=== PATIENT | male | born 1950 | race Two or more races ===

== ENCOUNTER 2022-05-19 13:07 | Outpatient (REF) | payer MEDICARE, MEDICAID, SELFPAY ==
[2022-05-19 14:50] LABS: Vitamin B12 841 pg/mL (200-900)
== END 2022-05-19 13:08 | disposition home or self-care (01) ==
LOC: HO.LAB 13:07
PROVIDERS: PCP Physician Assistant; Visit Provider Psychiatry & Neurology Neurology
DX: G30.9 Alzheimer's disease, unspecified (principal)
CPT/HCPCS: 36415; 82607

== ENCOUNTER → 2023-01-01 09:08 | Outpatient (BNVA) | payer MEDICARE, MEDICAID, SELFPAY | PROVIDERS: PCP Internal Medicine; Visit Provider Nurse Practitioner Family | DX: M25.561 Pain in right knee (principal); M25.511 Pain in right shoulder; M47.816 Spondylosis without myelopathy or radiculopathy, lumbar region; M51.36 Other intervertebral disc degeneration, lumbar region; G89.29 Other chronic pain; E11.40 Type 2 diabetes mellitus with diabetic neuropathy, unspecified | CPT/HCPCS: 99202 ==

== ENCOUNTER → 2023-01-25 08:45 | Outpatient (BNVA) | payer MEDICARE, MEDICAID, SELFPAY | PROVIDERS: PCP Internal Medicine; Visit Provider Nurse Practitioner Family | DX: E11.40 Type 2 diabetes mellitus with diabetic neuropathy, unspecified (principal); M25.511 Pain in right shoulder; G89.29 Other chronic pain | CPT/HCPCS: 17999; 99212; J7336 ==

== ENCOUNTER 2023-01-26 06:07 | Outpatient (REF) | payer MEDICARE, MEDICAID, SELFPAY ==
--- NOTE | ~2023-01-26 | FL_ITS ---
EXAMINATION: XR FLUOROSCOPY WITH IMAGES CLINICAL INFORMATION: Pain in right shoulder. COMPARISON: None available. TECHNIQUE: Fluoroscopy Supervised By: Dr. Walker Villegas. Fluoroscopy Time: 0.1 minute. Cumulative Dose: 1.04 mGy. DAP: 0.235 Gycm2. Images: 1. FINDINGS: Image demonstrates needle placement and contrast injection of the right shoulder FL/FL guidance in treatment room IMPRESSION: Fluoroscopy guidance for right shoulder injection
== END 2023-01-26 06:08 | disposition home or self-care (01) ==
LOC: CF 06:07
PROVIDERS: Visit Provider Anesthesiology
DX: M19.011 Primary osteoarthritis, right shoulder (principal); G89.29 Other chronic pain; E11.40 Type 2 diabetes mellitus with diabetic neuropathy, unspecified
CPT/HCPCS: 20610; J3301

== ENCOUNTER 2025-03-29 09:40 | Outpatient (REF) | payer MEDICARE, MEDICAID, SELFPAY ==
--- NOTE | ~2025-03-29 | XR_ITS ---
EXAMINATION: XR CERVICAL SPINE 4-5 VIEWS HISTORY: M47.812 - Spondylosis without myelopathy or radiculopathy, cervical region COMPARISON: There are no prior studies available for comparison. FINDINGS: AP, lateral, and open-mouth odontoid views of the cervical spine are submitted. Osseous mineralization is normal. Seven cervical vertebral bodies are identified maintaining normal height and alignment without evidence of fracture or subluxation. There is mild to moderate degenerative disc disease at the C4-5 and C5-6 levels, with disc space narrowing and osteophyte formation. The odontoid and lateral masses of C1 are intact. There is no prevertebral soft tissue swelling. XR/XR cervical spine 4V IMPRESSION: Degenerative disc disease as described. Electronically signed by: Geo Page MD 03/29/2025 10:53 AM EDT
== END 2025-03-29 09:41 | disposition home or self-care (01) ==
LOC: HO.XRAY 09:40
PROVIDERS: PCP Internal Medicine; Referring Provider Internal Medicine; Visit Provider Psychiatry & Neurology Neurology
DX: G30.1 Alzheimer's disease with late onset (principal); F02.A4 Dementia in other diseases classified elsewhere, mild, with anxiety; M47.812 Spondylosis without myelopathy or radiculopathy, cervical region; M54.2 Cervicalgia; F32.A Depression, unspecified
CPT/HCPCS: 72050; 99202

== ENCOUNTER 2025-03-29 09:40 | Outpatient (AMB) | payer MEDICARE, MEDICAID, SELFPAY ==
--- NOTE | 2025-03-29 09:52 | A.OFFVIS_ITS ---
Intake Visit Reasons: Follow Up Allergies No Known Allergies Allergy (Verified 01/26/23 11:17) HPI Comments Details: 74 years old woman with diabetes, hypertension, arthritis, asthma, and dementia probably of Alzheimer type with brain MRI revealing mild biparietal atrophy. She was symptomatically treated. She is presenting with right-sided neck pain and headache. The headaches are frequent and may be associated with cervical discomfort, alleviated by massages, suggesting cervical arthritis. No previous imaging such as neck x-ray has been reported. Sleep issues are also present, for which melatonin is used. Memory concerns are noted, and sertraline has been used for managing depression. The ongoing headache necessitates further investigation and management. [facility] Medical History (Updated 03/29/25 @ 10:02 by Rodrick Szymanski MD) Cervical spondylarthritis Obesity Depression Pulmonary emboli Alzheimer disease Hyperlipidemia Hypothyroid Hypertension Medial meniscus tear Colon polyp Osteopenia Osteoarthritis Chest pain at rest Lumbar degenerative disc disease Urge incontinence Vitamin D deficiency Thoracic aortic aneurysm, without rupture, unspecified Diabetes mellitus Diverticulitis Asthma Surgical History H/O total knee replacement History of arthroscopy of both knees Social History Alcohol intake: never Patient Tobacco Use Status: Never used Tobacco Review of Systems Const Details: - Neurological: Reports frequent headaches. Denies any imaging done for neck pain. - Musculoskeletal: Reports right-sided neck pain. - Psychiatric: Reports episodes of depression and use of sertraline. Denial of consistent mood. Reports memory issues at times. - General: Reports taking melatonin for sleep disturbances. Physical Exam Neuro Other: Alert and awake with normal spontaneity of speech fluency comprehension and flat affect. There was moderate paracervical muscle spasm. Balance gait and coordination are normal. Speech is normal. Assessment & Plan Assessment & Plan (1) Alzheimer dementia: Comment: MRI brain WO at [facility] in May 2022: mild biparietal atrophy. Code(s): G30.9 - Alzheimer's disease, unspecified; F02.80 - Dementia in other diseases classified elsewhere, unspecified severity, without behavioral disturbance, psychotic disturbance, mood disturbance, and anxiety Category: Medical Qualifiers: Alzheimer's disease onset: late onset Dementia severity: mild Dementia behavioral or psychological symptom: with anxiety Qualified Code(s): G30.1 - Alzheimer's disease with late onset; F02.A4 - Dementia in other diseases classified elsewhere, mild, with anxiety (2) Cervical spondylarthritis: Code(s): M47.812 - Spondylosis without myelopathy or radiculopathy, cervical region Category: Medical Qualifiers: Spinal osteoarthritis complication: without myelopathy or radiculopathy Qualified Code(s): M47.812 - Spondylosis without myelopathy or radiculopathy, cervical region Plan Impression: a: Dementia, probably of Alzheimer type b: Depression c: Cervical area pain probably due to arthritis Rec: a: Sertraline 100mg a day b: Cyclobenzperine 5mg at night c: XRay cervical spine Orders: Orders XR cervical spine 2V Today M47.812 - Spondylosis without myelopathy or radiculopathy, cervical region Medications: New cyclobenzaprine 5 mg PO BEDTIME 90 tabs 1RF sertraline 100 mg PO DAILY 90 tabs 0RF Coding Level of Care Code Tele New Pt Level 4 (03403) Diagnoses 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
--- OUTSIDE RECORDS SUMMARY | 2025-03-29 10:22 | XMS_ITS | Clinical Summary ---
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 Apply twice a day to feet 01/28/20 24 Active peg 400-propylene glycol (Lubricant Eye, PG-PEG 400,) 0.4-0.3 % drops Route: apply 2 Drops to the eye 4 times daily. - Ophthalmic 01/28/20 24 Active acetaminophen (TYLENOL) 500 mg tablet Take 1 tablet (500 mg total) by mouth every 6 (six) hours if needed. Active sertraline (ZOLOFT) 100 mg tablet Take 1 tablet (100 mg total) by mouth 1 (one) time each day. 05/14/20 23 Active miscellaneous medical supply liquid Blood Glucose Calibration (FREESTYLE CONTROL SOLUTION) Liquid Use as directed dx 250.60 05/12/20 16 Active disposable gloves misc Route: 2 Each by Does not apply route daily as needed for Other. - Does not apply 07/25/20 20 Active FREESTYLE LANCETS MISC Test three times daily or as directed dx 250.60 05/12/20 16 Active blood sugar diagnostic (FreeStyle Lite Strips) test strip Use as instructed. Dx 250.60 05/12/20 16 Active blood-glucose meter kit Dx 250.60 10/08/19 17 Active incontinence pad, liner, disp pad Route: 1 Each by Does not apply route 4 times daily. - Does not apply 12/22/19 14 Active miscellaneous medical supply [facility]. Devices (HAND HELD SHOWER SPRAY) [facility] Route: 1 Each by Does not apply route daily as needed for Other. - Does not apply 01/07/20 13 Active valsartan (DIOVAN) 40 mg tablet TAKE 1 TABLET(40 MG) BY MOUTH 1 TIME EACH DAY 90 tablet 3 09/27/19 25 Active aspirin 81 mg EC tablet TAKE 1 TABLET BY MOUTH EVERY DAY 90 tablet 3 09/27/19 25 Active atorvastatin (LIPITOR) 80 mg tablet TAKE 1 TABLET(80 MG) BY MOUTH DAILY AT BEDTIME 90 tablet 3 09/27/19 25 Active omeprazole (PriLOSEC) [address] capsule TAKE 1 CAPSULE(20 MG) BY MOUTH 1 TIME EACH DAY 90 capsule 3 09/27/19 25 Active levothyroxine (SYNTHROID, LEVOTHROID) 75 mcg tablet TAKE 1 TABLET BY MOUTH DAILY 90 tablet 3 09/27/19 25 Active montelukast (SINGULAIR) 10 mg tabletIndicatio ns:Mild persistent asthma without complication TAKE 1 TABLET(10 MG) BY MOUTH AT BEDTIME 90 tablet 3 03/28/20 25 Active budesonide-form oteroL (SYMBICORT) 160-4.5 mcg/actuation inhalerIndicati ons:Mild persistent asthma without complication INHALE 2 PUFFS BY MOUTH TWICE DAILY. RINSE MOUTH WITH WATER AFTER USE FOR AFTERTASTE AND INCIDENCE OF CANDIDIASIS. DO NOT SWALLOW 30.6 g 03/28/20 25 Active albuterol HFA (PROAIR HFA ; PROVENTIL HFA ; VENTOLIN HFA) 90 mcg/actuation inhalerIndicati ons:Mild persistent asthma without complication INHALE 2 PUFFS BY MOUTH EVERY 6 HOURS NEEDED WHEEZING/ SHORTNESS OF BREATH(COUGH). THIS IS RESCUE MEDICATION, NOT TO EXCEED 12 INHALATIONS IN 18 g 3 03/28/20 25 Active albuterol HFA (PROAIR HFA ; PROVENTIL HFA ; VENTOLIN HFA) 90 mcg/actuation inhalerIndicati ons:Mild persistent asthma without complication Inhale 2 puffs by mouth every 6 (six) hours if needed for wheezing or shortness of breath (cough). Route: Inhale 2 Puffs into the lungs every 6 hours as needed for Cough, Wheezing or Shortness of Breath. This is a Rescue Medication; not exceed 12 inhalations/24 hrs. - Inhalation 18 g 11/15/19 025 Discontinued budesonide-form oteroL (Symbicort) 160-4.5 mcg/actuation inhalerIndicati ons:Mild persistent asthma without complication Inhale 2 puffs by mouth 2 (two) times a day. Rinse mouth with water after use to reduce aftertaste and incidence of candidiasis. Do not swallow. 30.6 g 01/18/20 25 025 Discontinued montelukast (Singulair) 10 mg tabletIndicatio ns:Mild persistent asthma without complication Take 1 tablet (10 mg total) by mouth at bedtime. 90 each 01/18/20 25 025 Discontinued Active Problems Problem Noted Date Diagnosed Date Status post total left knee replacement 01/11/20 Assessment & Plan (02/14/2025 11:37 AM EDT): As above. Due to Hermelinda Osuna's condition of left knee replacement OA of the knees, she requires the use of a walker with a seat to enable her to take frequent rest breaks when ambulating. The patients mobility issues cannot be met with the use of a cane or standard walker. Jeane Macedo MD Gait instability 01/10/2025 Non-Romanian speaking patient 01/10/2025 History of heparin-induced thrombocytopenia 12/15 History of pulmonary embolism 01/10/2025 Type II or unspecified type diabetes mellitus with neurological manifestations, not stated as uncontrolled(250.60) ([facility] V24, [facility] V28) 05/15/2024 Assessment & Plan (10/24/2024 11:01 AM EDT): Orders: Comprehensive metabolic panel; Future Hemoglobin A1c; Future Lipid panel with reflex to direct LDL; Future Thyroid stimulating hormone; Future Diabetes ([facility] V24, [facility] V28) 05/15/2024 Asthma 04/24/2024 Overview (04/24/2024): Last Assessment & Plan: Stable mild persisting asthma Continue with albuterol as needed She uses the albuterol 2-3 times a week Return to clinic in 1 year. Colon polyps 04/24/2024 Diverticulitis 04/24/2024 HTN (hypertension) 04/24/2024 Assessment & Plan (12/08/2024 10:32 AM EDT): Well-controlled on valsartan. Continue same regimen. Assessment & Plan (10/24/2024 11:01 AM EDT): Orders: Comprehensive metabolic panel; Future Hemoglobin A1c; Future Lipid panel with reflex to direct LDL; Future Thyroid stimulating hormone; Future Hyperlipidemia 04/24/2024 Assessment & Plan (10/24/2024 11:01 AM EDT): Hypothyroid 04/24/2024 RSV infection 07/14/2022 Overview (04/24/2024): Last Assessment & Plan: I explained Mrs. Melvin that the cough is a normal finding after any respiratory tract infection. I explained her that the cough can last for 3 to 6 months but continually will continue improving. I advised her that if the cough does not improve in 3 to 4 months or decreased during the next couple of weeks I can see her back in clinic I order imaging. Alzheimer disease ([facility] V24, [facility] V28) 01/2022 Snoring 10/29/2020 Overview (04/24/2024): 10/2020 Home Sleep Study did not reveal sleep apnea or nocturnal hypoxia. Lab test negative for COVID-19 virus 09/29/2020 Personal history of COVID-19 09/26/2020 Gastroesophageal reflux disease without esophagi tis 08/13/2020 Diabetes mellitus ([facility] V24, [facility] V28) 10/2019 Assessment & Plan (12/08/2024 10:32 AM EDT): Well-controlled on a diet. Thoracic aortic aneurysm without rupture ([facility] V24) 02/12/2017 Vitamin D deficiency 12/16/2015 Urge incontinence 09/10/2014 Lumbar degenerative disc disease 05/16/2014 Obesity (BMI 30-39.9) 05/16/2014 Hypertensive retinopathy of both eyes 12/25/2013 Overview (04/24/2024): Cataracta noted outsie eye exam 12/26/12. Chest pain at rest 12/04/2013 Osteoarthritis 07/17/2013 Osteopenia 05/16/2013 Medial meniscus tear 01/25/2013 Encounters Date Type Department Care Team Description 02/13/2025 Telephone Adult Medicine [facility] [address] [place] [phone] Jeane Baxter MD Fitting for DME 01/17/2025 10:10 AM EDT Office Visit Pulmonolgy [facility] [address] [facility] [address] [place] [phone] Zulema Zhong NP Mild persistent asthma without complication (Primary Dx); Snoring; Alzheimer disease ([facility] V24, [facility] V28); Gastroesophageal reflux disease without esophagitis; Obesity (BMI 30-39.9) 01/17/2025 9:30 AM EDT Ancillary Procedure [facility] [address] [facility] [address] [place] [phone] Mild persistent asthma without complication 01/10/2025 11:00 AM EDT Consult Orthopedic Surgery - [facility] [address] [facility] [address] [place] [phone] Jas Castaneda MD Primary osteoarthritis of right knee (Primary Dx); Acute pain of left knee; Status post total left knee replacement; Gait instability; Non-Romanian speaking patient; History of heparin-induced thrombocytopenia; History of pulmonary embolism 12/29/2024 9:14 AM EDT - 12/29/2024 11:59 PM EDT Hospital Encounter CT Scan [address] [place] [phone] Dyspnea on exertion Discharge Disposition: Home or Self Care from Last 3 Months Immunizations Name Administration Dates Next Due Influenza trivalent, 0.5mL ( Fluzone High-dose) 65yo and older 04/14/2021,06/07/2018,05/10/2017 Influenza trivalent, with pr eservative (Fluzone; Afluria) 6mo and older 05/13/2015 Influenza, Unspecified 06/15/2021 Pneumococcal conjugate 13 va lent (Prevnar 13, PCV13) 2mo and older 12/16/2015 Pneumococcal polysaccharide 23 valent (Pneumovax 23) 2yo and older 12/22/2016 Surgical History Surgery Date Site/Laterality Comments TUBAL LIGATION PROCEDURE: HISTORICAL TUBAL LIGATION OTHER SURGICAL HISTORY PROCEDURE: ND UNLISTED PROCEDURE ARTHROSCOPY; COMMENT: b/l knees TOTAL KNEE ARTHROPLASTY 06/2020 Left PROCEDURE: ND ARTHRP KNE CONDYLE&PLATU MEDIAL&LAT COMPARTMENTS Medical History Medical History Date Comments HTN (hypertension) DX:HTN (hyper tension) Hypothyroid DX:Hypothyroid Osteoporosis DX:Osteoporosis Hyperlipidemia DX:Hyperlipidemi a Asthma DX:Asthma; COMME NT: last pft in 2011- mild obstructive lung disease DM (diabetes mellitus) ([facility] V24, [facility] V28) DX:DM (diabetes mellitus) (H CC) Diverticulitis DX:Diverticuliti s Medial meniscus tear 01/25/2013 DX:Medial m eniscus tear; COMMENT: bilateral knees on mri Colon polyps DX:Colon polyps Osteopenia 05/16/2013 DX:Osteopenia Osteoarthritis 07/17/2013 DX:Osteoarthriti s Urge incontinence 09/10/2014 DX:Urge incont inence Covid-19 06/17/2020 DX:COVID-19 COVID-19 virus infection 07/10/2020 DX:COVI D-19 virus infection Pulmonary embolism ([facility] V24, [facility] V28) 07/15/2020 DX:Pulmonary embolism (HCC); COMMENT: 06/2020 Per hematology only needed to be on blood thinner until 12/2020 Family History Medical History Relation Name Comments Breast cancer Aunt P. AUNT paternal Other: stomach cancer Mother's side 1 Other: esophageal cancer Mother's side 2 Colon cancer Neg Hx Ovarian cancer Neg Hx Relation Name Status Comments Aunt P. AUNT Brother dm Father asthma Mother alzheimer Mother's side 1 Mother's side 2 Sister Alive dm Social History Tobacco Use Types Packs/Day Years Used Date Smoking Tobacco: Never Smokeless Tobacco: Never Tobacco Cessation:Counseling Given: Not Answered Alcohol Use Standard Drinks/Week Comments No 0 (1 standard drink = 0.6 oz pur e alcohol) Housing Instability Answer Date Recorde d Are you worried that in the next 2 months you may not have stable housing? No 06/20/2024 Food Access & Nutrition Answer Date Rec orded Do you have access to a vari ety of food including fruits and vegetables? Yes 06/20/2024 Access to Healthcare Answer Date Record ed Within the last 3 months, ho w many times did you visit the emergency department for your medical care? 0 06/20/2024 Financial Risk Answer Date Recorded How hard is it for you to pa y for the very basics like food, housing, medical care, and air conditioning / heating? Not very hard 06/20/2024 Transportation Answer Date Recorded Has the lack of transportati on kept you from meetings, work, or from getting things needed for daily living? No Has the lack of transportati on kept you from medical appointments or from getting medications? No 06/20/2024 Social Isolation Answer Date Recorded How often do you feel lonely or isolated from th ose around you? Never 06/20/2024 Food Risk Answer Date Recorded Within the past 12 months we worried whether our food would run out before we got money to buy more. Never true 06/20/2024 Within the past 12 months th e food we bought just didn't last and we didn't have money to get more. Never true 06/20/2024 Dependent Care Answer Date Recorded Do you need help finding or paying for care for your loved ones. For example, child center assistant or elderly care for an older adult? No 06/20/2024 Education Answer Date Recorded Do you think completing more education or training, like finishing a GED, going to college, or learning a trade, would be helpful for you? No 06/20/2024 Employment and Income Answer Date Recor ded During the last four weeks, have you been actively looking for work? No 06/20/2024 Living Situation Answer Date Recorded What is your living situation? 1 08/20/2023 Comments No Sex and Gender Information Value Date Recorded Sex Assigned at Not on file Legal Sex Female 5:41 PM EST Gender Identity Not on file Sexual Orientation Not on file Obstetrics History Para Term AB IAB SAB Ectopic Multiple Livin g Live Births 8 8 8 8 Date Outcome GA Total Labor Labor/2nd/3rd Weight Sex Type Anes PTL Radhika A1 A5 Name Clin Term Term Term Term Term Term Term Term Last Filed Vital Signs Vital Sign Reading Time Taken Comments Blood Pressure 122/70 01/17/2025 9:51 AM EDT Pulse 61 01/17/2025 9:51 AM EDT Temperature 36 C (96.8 F) 01/17/2025 9:51 AM EDT Respiratory Rate 14 01/17/2025 9:51 AM EDT Oxygen Saturation 95% 01/17/2025 9:51 AM EDT Inhaled Oxygen Concentration - - Weight 90.9 kg (200 lb 6.4 oz) 01/17/2025 9:51 A M EDT Height 162.6 cm (5' 4 ) 01/17/2025 9:51 AM EDT Body Mass Index 34.4 01/17/2025 9:51 AM EDT Plan of Treatment Upcoming Encounters Date Type Department Care Team (Late st Contact Info) Description 04/04/2025 8:30 AM EDT Office Visit [facility]gy [place] [address] [facility] [address] [facility] [address] [place] [address] Zulema Zhong NP [address] [place] [address] 04/26/2025 9:30 AM EDT Office Visit Adult Medicine [facility] [address] [place] [phone] Jeane Baxter MD [address] [place] [phone] Health Maintenance Due Date Last Done Comments Medicare Annual Wellness Visit 07/25/2022 RSV Immunization Adult Patients (1 - 1-dose 75+ series) 11/12/2023 Depression Screening 08/16/2024 06/20/2024 Osteoporosis Screening (Bone Density Screening) 10/01/2024 10/01/2022, 09/10/2020 Diabetes: Blood Sugar Control Test (HGBA1C) 03/13/2025 09/13/2024, 02/23/2024, 02/23/2024 Falls Risk Assessment 06/20/2025 06/20/2024 Social Influencers of Health Screening 06/20/2025 06/20/2024 Diabetes: Annual Urine Albumin-Creatinine Ratio (uACR) 09/13/2025 09/13/2024, 02/23/2024, 02/23/2024 Diabetes: Annual GFR (Glomerular Filtration Rate) 09/13/2025 09/13/2024, 02/23/2024, 02/23/2024 Hypertension/CHF/CAD Annual BMP Blood Test 09/13/2025 09/13/2024, 02/23/2024, 02/23/2024 Diabetes: Annual Retina Eye Exam 10/19/2025 10/19/2024, 09/29/2023, 09/29/2023 Diabetes: Annual Foot Exam 10/24/202510/24, 09/29/2023, 09/29/2023 Colorectal Cancer Screening: Colonoscopy 06/20/2028 03/16/2018 Postponed from 03/16/2023 (Not clinically appropriate to address at this time) Cholesterol Screening (Lipid Panel) 09/13/2029 09/13/2024, 02/23/2024, 02/23/2024 Hepatitis C Screening Completed 07/17/2013 Pneumococcal Vaccine: 50+ Years Completed 12/22/2016, 12/16/2015 Influenza Vaccine Discontinued 06/15/2021, , 06/07/2018, Additional history exists Breast Cancer Screening Discontinued 10/26/19, 10/11/2023, 10/11/2023, Additional history exists COVID-19 Vaccine Discontinued DTaP,Tdap,and Td Vaccines Discontinued HIB Vaccines Aged Out No longer eligi ble based on patient's age to complete this topic HPV Vaccines Aged Out No longer eligi ble based on patient's age to complete this topic Hepatitis A Vaccines Aged Out No long er eligible based on patient's age to complete this topic Hepatitis B Vaccines Aged Out No long er eligible based on patient's age to complete this topic IPV Vaccines Aged Out No longer eligi ble based on patient's age to complete this topic MMR Vaccines Aged Out No longer eligi ble based on patient's age to complete this topic Meningococcal ACWY Vaccine Aged Out N o longer eligible based on patient's age to complete this topic Meningococcal B Vaccine Aged Out No l onger eligible based on patient's age to complete this topic RSV Immunization Patients Under 20 months Aged Out No longer eligible based on patient's age to complete this topic Varicella Vaccines Aged Out No longer eligible based on patient's age to complete this topic Zoster Vaccines Discontinued Procedures Procedure Name Priority Date/Time Associated Diagnosis Comments PULMONARY FUNCTION TESTING Routine 01/17/2025 9:29 AM EDT Mild persistent asthma without complication CT CHEST WO CONTRAST Routine 12/29/2024 9:22 AM EDT Dyspnea on exertion MG MAMMO DIGITAL SCREENING W DARIEN BILAT Routine 10/25/2024 9:53 AM EDT Encounter for screening mammogram for breast cancer EXTERNAL DIABETIC RETINA EYE EXAM Routine 10/19/2024 9:25 AM EST MICROALBUMIN CREATININE URINE RATIO Routine 09/13/2024 8:43 AM EST Type 2 diabetes mellitus without complication, without long-term current use of insulin ([facility] V24, [facility] V28) COMPREHENSIVE METABOLIC PANEL Routine 09/13/2024 8:37 AM EST Type 2 diabetes mellitus without complication, without long-term current use of insulin (CMS/[facility] V24, [facility] V28) HEMOGLOBIN A1C Routine 09/13/2024 8:37 AM EST Type 2 diabetes mellitus without complication, without long-term current use of insulin (CMS/HCC V24, CMS/H[facility] V28) LIPID PANEL WITH REFLEX TO DIRECT LDL Routine 09/13/2024 8:37 AM EST Type 2 diabetes mellitus without complication, without long-term current use of insulin ([facility] V24, [facility] V28) HM DIABETES FOOT EXAM Routine 09/29/2023 DXA BONE DENSITY STUDY 1+ SITS AXIAL SKEL Routine 10/01/2022 1:43 PM EST Hypothyroidism, unspecified HEPATITIS C SCREENING Routine 07/17/2013 from Last 3 Months or Most Recently Relevant to Health Maintenance Results * Pulmonary function testing: Nitric Oxide Gas Determination (01/17/2025 9:29 AM EDT) Impressions Brandon Jenkins MD - 01/17/2025 9:29 AM EDT NIOX is at 9 ppb us 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 Few nonspecific groundglass opacities bilaterally which may represent stigmata of postinfectious/postinflammatory etiology and/or airway trapping. -------- FINAL REPORT -------- Dictated By: Silvia Mcintyre Dictated Date: 12/29/2024 10:15 ET Assigned Physician: Silvia Mcintyre Reviewed and Electronically Signed By: Silvia Mcintyre Signed Date: 12/29/2024 10:27 ET Workstation ID: [id number] Transcribed By: Self Edit Transcribed Date: 12/29/2024 10:15 ET Narrative 12/29/2024 10:27 AM EDT INDICATION: Cough, persistent;Dyspnea, chronic, unclear etiology; worsening respiratory function on PFT compare to 2020. TECHNIQUE: Multiple contiguous axial CT images were obtained of the chest without intravenous contrast. Multiplanar reformats were created and interpreted. The CT scanner utilized low- dose iterative reconstruction technique with automatic exposure control based on patient size. DLP: 258.11 mGy-cm COMPARISON: Prior chest CT June 2020 FINDINGS: Lack of intravenous contrast limits evaluation of the salvador, vascular structures and abdominal viscera. LUNGS/PLEURA: Central airways are patent. Mild bronchiectasis. Bibasilar, right middle lobe and lingular atelectasis. Few patchy groundglass/reticular opacities in the upper lobes peripherally. Mild subpleural reticularity. No suspicious pulmonary nodules. MEDIASTINUM: Thyroid gland is unremarkable. Thoracic aortic and coronary artery calcifications. Dilatation of the ascending thoracic aorta measuring approximately 4.0 cm at the level of the pulmonary trunk; slightly larger from June 2020. Nonenlarged mediastinal lymph nodes. Hilar lymphadenopathy is difficult to assess due to lack of IV contrast. Tortuous descending thoracic aorta. MISCELLANEOUS: No axillary lymphadenopathy. UPPER ABDOMEN: Possible small hiatal hernia. 8 mm calcified splenic artery aneurysm. BONES AND SOFT TISSUES: Degenerative changes. Procedure Note Silvia Mcintyre MD - 12/29/2024 INDICATION: Cough, persistent;Dyspnea, chronic, unclear etiology;worsening respiratory function on PFT compare to 2020. TECHNIQUE: Multiple contiguous axial CT images were obtained of the chestwithout intravenous contrast. Multiplanar reformats were created andinterpreted. The CT scanner utilized low-dose iterative reconstructiontechnique with automatic exposure control based on patient size. DLP: 258.11 mGy-cm COMPARISON: Prior chest CT June 2020 FINDINGS: Lack of intravenous contrast limits evaluation of the salvador,vascular structures and abdominal viscera. LUNGS/PLEURA: Central airways are patent. Mild bronchiectasis.Bibasilar, right middle lobe and lingular atelectasis. Few patchygroundglass/reticular opacities in the upper lobes peripherally. Mildsubpleural reticularity. No suspicious pulmonary nodules. MEDIASTINUM: Thyroid gland is unremarkable. Thoracic aortic and coronaryartery calcifications. Dilatation of the ascending thoracic aortameasuring approximately 4.0 cm at the level of the pulmonary trunk;slightly larger from June 2020. Nonenlarged mediastinal lymph nodes.Hilar lymphadenopathy is difficult to assess due to lack of IV contrast.Tortuous descending thoracic aorta. MISCELLANEOUS: No axillary lymphadenopathy. UPPER ABDOMEN: Possible small hiatal hernia. 8 mm calcified splenicartery aneurysm. BONES AND SOFT TISSUES: Degenerative changes. IMPRESSION: No acute findings. Few nonspecific groundglass opacities bilaterallywhich may represent stigmata of postinfectious/postinflammatory etiologyand/or airway trapping. 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 BI-RADS CATEGORY: 1 - NEGATIVE RECOMMENDATION: Screening bilateral mammogram is recommended in 1 year. Mammo Location: [facility], [address] [place] [address], [facility], . -------- FINAL REPORT -------- Dictated By: Gema Alarcon Dictated Date: 10/25/2024 11:31 ET Assigned Physician: Gema Alarcon Reviewed and Electronically Signed By: Gema Alarcon Signed Date: 10/25/2024 11:36 ET Workstation ID: [id number] Transcribed By: Self Edit Transcribed Date: 10/25/2024 11:31 ET Narrative 10/25/2024 11:36 AM EDT CLINICAL: 73 years old, Female, routine annual exam. COMPARISON: Mammograms dating back to 08/12/2020 with most recent of 10/11/2023. TECHNIQUE: Bilateral MLO and CC views were obtained digitally with 3-D mammogram (digital breast tomosynthesis). Computer-aided detection was utilized in evaluation of this exam (CAD). FINDINGS: There is no evidence of suspicious mass or architectural distortion. No worrisome calcifications are evident. There has been no significant change from prior exam(s). BREAST DENSITY: B - There are scattered areas of fibroglandular density. Procedure Note Gema Alarcon MD - 10/25/2024 CLINICAL: 73 years old, Female, routine annual exam. COMPARISON: Mammograms dating back to 08/12/2020 with most recent of10/11/2023. TECHNIQUE: Bilateral MLO and CC views were obtained digitally with 3-Dmammogram (digital breast tomosynthesis). Computer-aided detection wasutilized in evaluation of this exam (CAD). FINDINGS: There is no evidence of suspicious mass or architectural distortion. Noworrisome calcifications are evident. There has been no significantchange from prior exam(s). BREAST DENSITY: B - There are scattered areas of fibroglandular density. IMPRESSION: Benign. BI-RADS CATEGORY: 1 - NEGATIVE RECOMMENDATION: Screening bilateral mammogram is recommended in 1 year. Mammo Location: [facility], [address] [place] [address], [id number], . -------- FINAL REPORT -------- Dictated By: Gema Alarcon Dictated Date: 10/25/2024 11:31 ET Assigned Physician: Gema Alarcon Reviewed and Electronically Signed By: Gema Alarcon Signed Date: 10/25/2024 11:36 ET Workstation ID: [id number] Transcribed By: Self Edit Transcribed Date: 10/25/2024 11:31 ET Jeane Baxter MD G BI PROCEDURES Final Result * External Diabetic Retina Eye Exam Report (10/19/2024 9:25 AM EST) Anatomical Region Laterality Modality Ultrasound us Historical Provider IMG US PROCEDURES Final R esult * Microalbumin creatinine urine ratio (09/13/2024 8:43 AM EST) Creatinine, Urine 181.0 mg/dL LAB CHEMISTRY METHOD 09/13/2024 10:06 AM EST [facility] Microalb, Ur 17.3 0.0 - 29.0 mg/L LAB CHEMISTRY METHOD 09/13/2024 10:06 AM [facility] Microalb/Creat Ratio 10 <30 mg/g creat LAB CHEMISTRY METHOD 09/13/2024 10:06 AM [facility] Urine Urine specimen from urethra / Unknown Non-blood Collection / Unknown 09/13/2024 8:43 AM EST 09/13/2024 9:12 AM EST us Jeane Baxter MD LAB URINE ORDERABL ES Final Result [facility] [address] [place] [address], [place] [phone] * Lipid panel with reflex to direct LDL (09/13/2024 8:37 AM EST) Cholesterol 167 0 - 200 mg/dL LAB CHEMISTRY METHOD 09/13/2024 10:01 AM [facility] Triglycerides 103 0 - 150 mg/dL LAB CHEMISTRY METHOD 09/13/2024 10:01 AM [facility] HDL 61 >=40 mg/dL LAB CHEMISTRY METHOD 09/13/2024 10:01 AM [facility] LDL Calculated 85 0 - 100 mg/dL LAB CHEMISTRY METHOD 09/13/2024 10:01 AM [facility] VLDL Cholesterol Boni 20.6 mg/dL LAB CHEMISTRY METHOD 09/13/2024 10:01 AM [facility] Non HDL Chol. (LDL+VLDL) 106 <145 mg/dL LAB CHEMISTRY METHOD 09/13/2024 10:01 AM [facility] Chol/HDL Ratio 2.7 0.0 - 4.4 LAB CHEMISTRY METHOD 09/13/2024 10:01 AM [facility] Blood Venous blood specimen / Unknown Venipuncture / Unknown 09/13/2024 8:37 AM EST 09/13/2024 9:11 AM EST us Jeane Baxter MD LAB BLOOD ORDERABL ES Final Result [facility] [address] [place] [address], [place] [phone] * Hemoglobin A1c (09/13/2024 8:37 AM EST) [facility] Hemoglobin A1C 6.4 <6.5 % LAB CHEMISTRY METHOD 09/13/2024 11:22 AM EST [facility] Mean Bld Glu Estim. 137 mg/dL LAB CHEMISTRY METHOD 09/13/2024 11:22 AM [facility] Blood Venous blood specimen / Unknown Venipuncture / Unknown 09/13/2024 8:37 AM EST 09/13/2024 9:12 AM EST Jeane Baxter MD LAB BLOOD ORDERABL ES Final Result [facility] [address] [place] [address], [place] [phone] * (ABNORMAL) Comprehensive metabolic panel (09/13/2024 8:37 AM EST) [facility] Sodium 141 133 - 145 mmol/L LAB CHEMISTRY METHOD 09/13/2024 10:19 AM [facility] Potassium 4.9 3.5 - 5.5 mmol/L LAB CHEMISTRY METHOD 09/13/2024 10:19 AM [facility] Chloride 110 96 - 110 mmol/L LAB CHEMISTRY METHOD 09/13/2024 10:19 AM [facility] CO2 28 21 - 32 mmol/L LAB CHEMISTRY METHOD 09/13/2024 10:19 AM [facility] Anion Gap 3 3 - 11 LAB CHEMISTRY METHOD 09/13/2024 10:19 AM [facility] Glucose 112(H) 70 - 100 mg/dL LAB CHEMISTRY METHOD 09/13/2024 10:19 AM [facility] BUN 16 5 - 25 mg/dL LAB CHEMISTRY METHOD 09/13/2024 10:19 AM [facility] Creatinine 0.72 0.50 - 1.10 mg/dL LAB CHEMISTRY METHOD 09/13/2024 10:19 AM [facility] eGFR 87 >=60 mL/min/1. 73m2 LAB CHEMISTRY METHOD 09/13/2024 10:19 AM [facility] Comment:Calculation based on the Chronic Kidney Disease Epidemiology Collaboration (CKD-EPI) equation refit without adjustment for race. BUN/Creatinine Ratio 22.2 LAB CHEMISTRY METHOD 09/13/2024 10:19 AM [facility] Calcium 9.2 8.5 - 10.5 mg/dL LAB CHEMISTRY METHOD 09/13/2024 10:19 AM [facility] AST (SGOT) 17 10 - 42 unit/L LAB CHEMISTRY METHOD 09/13/2024 10:19 AM [facility] ALT (SGPT) 20 10 - 60 unit/L LAB CHEMISTRY METHOD 09/13/2024 10:19 AM [facility] Alkaline Phosphatase 89 42 - 121 unit/L LAB CHEMISTRY METHOD 09/13/2024 10:19 AM [facility] Total Protein 7.1 6.0 - 8.0 g/dL LAB CHEMISTRY METHOD 09/13/2024 10:19 AM [facility] Albumin 3.9 3.2 - 5.0 g/dL LAB CHEMISTRY METHOD 09/13/2024 10:19 AM [facility] Total Bilirubin 0.5 0.0 - 1.4 mg/dL LAB CHEMISTRY METHOD 09/13/2024 10:19 AM [facility] Blood Venous blood specimen / Unknown Venipuncture / Unknown 09/13/2024 8:37 AM EST 09/13/2024 9:11 AM EST us Jeane Baxter MD LAB BLOOD ORDERABL ES Final Result [facility] [address] [place] [address], * Diabetes Foot Exam (09/29/2023) Diabetes: Annual Foot Exam Abstracted us Historical Provider HEALTH MAINTENANCE Final Result * DXA BONE DENSITY STUDY 1+ SITS AXIAL SKEL (10/01/2022 1:43 PM EST) Anatomical Region Laterality Modality Bone Densitometr y 09/15/2022 8:50 AM EST Narrative 10/01/2022 1:45 PM EST BONE DENSITY Lumbar Spine T-score is -0.9 (SD relative to 20-29 y/o adult) Z-score is +1.5 (SD relative to age matched peers) This is normal by criteria defined by the WHO. Left Hip T-score is -0.9 Z-score is +0.9 This is normal by criteria defined by the WHO. Comparison exam(s): significant decrease in bone density of lumbar spine when compared to most recent bone density examination Confidence level is +/-95%. Impression: Based on the World Health Organization criteria, Hermelinda Melvin should be classified as having normal bone density. The [facility] Department of Internal Medicine recommends using National Osteoporosis Foundation (NOF) guidelines in treatment decisions related to osteoporosis. NOF guidelines suggest considering treatment for postmenopausal women and men aged 50 or older presenting with the following: History of hip or vertebral fracture. T-score less than or equal to -2.5 (DXA) at the femoral neck, total hip, or spine, after appropriate evaluation to exclude secondary causes. Low bone mass (T-score between -1.0 and -2.5 at the femoral neck or spine) AND a 10-year probability of a hip fracture greater than or equal to 3% OR a 10-year probability of a major osteoporosis-related fracture greater than or equal to 20% based on the [place]-adapted WHO algorithm Please note that all treatment decisions require clinical judgment and consideration of individual patient factors, including patient preferences, co-morbidities, previous drug use, risk factors not captured in the FRAX model (e.g., frailty, falls, vitamin D deficiency, increased bone turnover, interval significant decline in bone density) and possible under- or over-estimation of fracture risk by FRAX. Procedure Note Sierra Mackey MD - 09/20/2023 BONE DENSITY Lumbar Spine T-score is -0.9 (SD relative to 20-29 y/o adult) Z-score is +1.5 (SD relative to age matched peers) This is normal by criteria defined by the WHO. Left Hip T-score is -0.9 Z-score is +0.9 This is normal by criteria defined by the WHO. Comparison exam(s): significant decrease in bone density of lumbar spinewhen compared to most recent bone density examination Confidence level is +/-95%. Impression: Based on the World Health Organization criteria, Hermelinda Melvin shouldbe classified as having normal bone density. The [facility] Department of Internal Medicine recommendsusing National Osteoporosis Foundation (NOF) guidelines in treatmentdecisions related to osteoporosis. NOF guidelines suggest consideringtreatment for postmenopausal women and men aged 50 or older presentingwith the following: History of hip or vertebral fracture. T-score less than or equal to -2.5 (DXA) at the femoral neck, total hip,or spine, after appropriate evaluation to exclude secondary causes. Low bone mass (T-score between -1.0 and -2.5 at the femoral neck or spine)AND a 10-year probability of a hip fracture greater than or equal to 3% ORa 10-year probability of a major osteoporosis-related fracture greaterthan or equal to 20% based on the [place]-adapted WHO algorithm Please note that all treatment decisions require clinical judgment andconsideration of individual patient factors, including patientpreferences, co-morbidities, previous drug use, risk factors not capturedin the FRAX model (e.g., frailty, falls, vitamin D deficiency, increasedbone turnover, interval significant decline in bone density) and possibleunder- or over-estimation of fracture risk by FRAX. 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 Health Care Decision (hx) 06/13/2020 AD FLORES DIRECTIVE Health Care Decision (hx) 06/13/2020 AD FLORES DIRECTIVE Health Care Decision (hx) 06/13/2020 AD FLORES DIRECTIVE Health Care Decision (hx) 06/13/2020 AD FLORES DIRECTIVE Health Care Decision (hx) 06/13/2020 AD FLORES DIRECTIVE Health Care Decision (hx) 06/13/2020 AD FLORES DIRECTIVE Health Care Decision (hx) 06/13/2020 AD FLORES DIRECTIVE Health Care Decision (hx) 06/13/2020 AD FLORES DIRECTIVE Care Teams Crystallography Teacher Relationship Specialty Start Date End Date Jeane Baxter MD [address] [place] [id number] PCP - General Internal Medicine 06/20/24
== END 2025-03-29 10:07 | disposition home or self-care (01) ==
LOC: HO.HSM 09:41
PROVIDERS: PCP Internal Medicine; Referring Provider Internal Medicine; Visit Provider Psychiatry & Neurology Neurology
DX: G30.1 Alzheimer's disease with late onset (principal); F02.A4 Dementia in other diseases classified elsewhere, mild, with anxiety; M47.812 Spondylosis without myelopathy or radiculopathy, cervical region
CPT/HCPCS: 99204

== ENCOUNTER → 2025-03-29 10:32 | Outpatient (BNV) | payer MEDICARE, MEDICAID, SELFPAY | PROVIDERS: PCP Internal Medicine; Referring Provider Internal Medicine; Visit Provider Radiology Diagnostic Radiology | DX: M47.812 Spondylosis without myelopathy or radiculopathy, cervical region (principal) | CPT/HCPCS: 72050 ==

== ENCOUNTER 2025-05-07 09:23 | Outpatient (AMB) | payer MEDICARE, MEDICAID, SELFPAY ==
--- NOTE | 2025-05-07 09:28 | MHC.OFFVIS ---
Intake Visit Reasons: 6 weeks xray results Allergies No Known Allergies Allergy (Verified 01/26/23 11:17) HPI Comments Details: 74 years old woman with diabetes, hypertension, arthritis, and dementia. She is doing ok, regular. She is taking the pill and it is helping. She is presenting with neck pain. He reports improvement in neck discomfort when adhering to the prescribed pharmacological regimen, as the medication is seen as effective in alleviating the symptoms. He acknowledges cervical arthritis as a contributing factor, characterizing it as mild and typical for his age group. The neck pain lacks any accompanying neurological symptoms, and there is no report of exacerbating events; thus, it appears to be a chronic and stable condition rather than acute. Past imaging has indicated mild arthritis, although the patient does not report significant functional limitation due to this finding. [facility] Medical History (Updated 05/07/25 @ 09:28 by Rodrick Szymanski MD) Cervical spondylarthritis Obesity Depression Pulmonary emboli Alzheimer disease Hyperlipidemia Hypothyroid Hypertension Medial meniscus tear Colon polyp Osteopenia Osteoarthritis Chest pain at rest Lumbar degenerative disc disease Urge incontinence Vitamin D deficiency Thoracic aortic aneurysm, without rupture, unspecified Diabetes mellitus Diverticulitis Asthma Surgical History H/O total knee replacement History of arthroscopy of both knees Social History Alcohol intake: never Patient Tobacco Use Status: Never used Tobacco Review of Systems Const Details: - Musculoskeletal: Reports neck pain; Denies radiating pain or neurological deficits. Physical Exam Neuro Other: Mental Status: Alert and oriented to person, place, and time. Normal attention. Normal spontaneous speech, fluency, and comprehension. No obvious issues with mood and memory. Affect is appropriate. Cranial Nerves: CN II: Visual hart full to confrontation, visual acuity intact. CN III, IV, : Pupils equal, round, reactive to light and accommodation. Extraocular movements are normal. CN V: Facial sensation is normal. CN VII: Facial movements symmetrical. CN VIII: Hearing intact to bedside conversation is normal. CN IX, X: Palate elevates symmetrically. CN XI: Shoulder shrug and head turn symmetrical. CN XII: Tongue midline without atrophy or fasciculations. Extrapyramidal: Full facial expressions and blinking. No rigidity. Movements are appropriate with no tremor or abnormality. Speech: Normal; no dysarthria or tremor. Assessment & Plan Assessment & Plan (1) Alzheimer disease: Code(s): G30.9 - Alzheimer's disease, unspecified; F02.80 - Dementia in other diseases classified elsewhere, unspecified severity, without behavioral disturbance, psychotic disturbance, mood disturbance, and anxiety Category: Medical Plan Impression and recommendations: 74 years old woman with mild dementia and depression treated with sertraline 100 mg a day. She was feeling better and medicine was continued. Medications: New sertraline 100 mg PO DAILY 90 tabs 1RF Coding Level of Care Code Tele Est Pt Level 4 (27505) Diagnoses Alzheimer disease G30.9; F02.80
--- OUTSIDE RECORDS SUMMARY | 2025-05-07 11:05 | XMS_ITS | Clinical Summary ---
Author Organization [facility] [address] [facility] Address [address] [place] [address] Phone Care Team Providers Care Branch Administrator Name Role Phone Jeane Baxter MD Primary Care Prov ider Allergies No known active allergies Medications peg 400-propylene glycol (Lubricant Eye, PG-PEG 400,) 0.4-0.3 % drops Route: apply 2 Drops to the eye 4 times daily. - Ophthalmic 024 Active acetaminophen (TYLENOL) 500 mg tablet Take 1 tablet (500 mg total) by mouth every 6 (six) hours if needed. Active sertraline (ZOLOFT) 100 mg tablet Take 1 tablet (100 mg total) by mouth 1 (one) time each day. 023 Active miscellaneous medical supply liquid Blood Glucose Calibration (FREESTYLE CONTROL SOLUTION) Liquid Use as directed dx 250.60 016 Active disposable gloves misc Route: 2 Each by Does not apply route daily as needed for Other. - Does not apply 020 Active FREESTYLE LANCETS MISC Test three times daily or as directed dx 250.60 016 Active blood-glucose meter kit Dx 250.60 017 Active incontinence pad, liner, disp pad Route: 1 Each by Does not apply route 4 times daily. - Does not apply 014 Active miscellaneous medical supply misc Misc. Devices (HAND HELD SHOWER SPRAY) MISC Route: 1 Each by Does not apply route daily as needed for Other. - Does not apply 013 Active valsartan (DIOVAN) 40 mg tablet TAKE 1 TABLET(40 MG) BY MOUTH 1 TIME EACH DAY 90 tablet 3 025 Active aspirin 81 mg EC tablet TAKE 1 TABLET BY MOUTH EVERY DAY 90 tablet 3 025 Active atorvastatin (LIPITOR) 80 mg tablet TAKE 1 TABLET(80 MG) BY MOUTH DAILY AT BEDTIME 90 tablet 3 025 Active omeprazole (PriLOSEC) [address] capsule TAKE 1 CAPSULE(20 MG) BY MOUTH 1 TIME EACH DAY 90 capsule 3 Active levothyroxine (SYNTHROID, LEVOTHROID) 75 mcg tablet TAKE 1 TABLET BY MOUTH DAILY 90 tablet 3 025 Active albuterol HFA (PROAIR HFA ; PROVENTIL HFA ; VENTOLIN HFA) 90 mcg/actuation inhalerIndicati ons:Mild persistent asthma without complication INHALE 2 PUFFS BY MOUTH EVERY 6 HOURS NEEDED WHEEZING/ SHORTNESS OF BREATH(COUGH). THIS IS RESCUE MEDICATION, NOT TO EXCEED 12 INHALATIONS IN 18 g 3 025 Active cyclobenzaprine (FLEXERIL) 5 mg tablet Take 1 tablet (5 mg total) by mouth at bedtime. at bedtime. 025 Active budesonide-form oteroL (SYMBICORT) 160-4.5 mcg/actuation inhalerIndicati ons:Mild persistent asthma without complication Inhale 2 puffs by mouth 2 (two) times a day. Rinse mouth with water after use to reduce aftertaste and incidence of candidiasis. Do not swallow. 30.6 g 3 025 Active montelukast (SINGULAIR) 10 mg tabletIndicatio ns:Mild persistent asthma without complication Take 1 tablet (10 mg total) by mouth at bedtime. 90 tablet 3 025 Active loratadine (Claritin) 10 mg tabletIndicatio ns:Mild persistent asthma without complication,As thma due to seasonal allergies Take 1 tablet (10 mg total) by mouth 1 (one) time each day. 30 each 2 025 2025 Active ammonium lactate (LAC-HYDRIN) 12 % lotion Apply topically if needed for dry skin. Apply twice a day to feet 400 g 1 025 Active blood-glucose meter kitIndications: Type II or unspecified type diabetes mellitus with neurological manifestations, not stated as uncontrolled(25 0.60) ([facility] V24, [facility] V28) 1 each if needed (check glucose). 1 each 025 2025 Active ipratropium-alb uteroL (DUONEB) 0.5-2.5 mg/3 mL nebulizer solution Take 3 mL by nebulization 4 (four) times a day if needed for wheezing or shortness of breath. 360 mL 11 025 2025 Active blood sugar diagnostic (FreeStyle Lite Strips) test strip Test blood sugar once daily dx; E11.49 100 each 1 025 Active ammonium lactate (LAC-HYDRIN) 12 % lotion as needed. Apply twice a day to feet 024 2024 Discontinued(R eorder) blood sugar diagnostic (FreeStyle Lite Strips) test strip Use as instructed. Dx 250.60 016 2024 Discontinued blood sugar diagnostic (FreeStyle Lite Strips) test stripIndication s:Type II or unspecified type diabetes mellitus with neurological manifestations, not stated as uncontrolled(25 0.60) ([facility] V24, [facility] V28) Use as instructed 100 each 12 025 2024 Discontinued Active Problems Problem Noted Date Diagnosed Date Status post total left knee replacement 01/11/20 25 Assessment & Plan (02/14/2025 11:37 AM EDT): As above. Due to Miladys Osuna's condition of left knee replacement OA of the knees, she requires the use of a walker with a seat to enable her to take frequent rest breaks when ambulating. The patients mobility issues cannot be met with the use of a cane or standard walker. Jeane Macedo MD Gait instability 01/10/2025 Non-Namibian speaking patient 01/10/2025 History of heparin-induced thrombocytopenia 12/15 History of pulmonary embolism 01/10/2025 Type II or unspecified type diabetes mellitus with neurological manifestations, not stated as uncontrolled(250.60) ([facility] V24, [facility] V28) 05/15/2024 Assessment & Plan (05/07/2025 10:15 AM EDT): Good control of diabetes on a diet. Patient will continue with yearly Podiatric and Ophthomologic evaluations. Will continue Angiotensin Converting Enzyme Inhibitor for renal protection. We will check a hemoglobin A1C before her next visit. Will recheck a CMP, A1c, lipid panel before her next visit. Orders: blood-glucose meter kit; 1 each if needed (check glucose). blood sugar diagnostic (FreeStyle Lite Strips) test strip; Use as instructed Assessment & Plan (10/24/2024 11:01 AM EDT): Orders: Comprehensive metabolic panel; Future Hemoglobin A1c; Future Lipid panel with reflex to direct LDL; Future Thyroid stimulating hormone; Future Diabetes ([facility] V24, [facility] V28) 05/15/2024 Asthma 04/24/2024 Overview (04/24/2024): Last Assessment & Plan: Stable mild persisting asthma Continue with albuterol as needed She uses the albuterol 2-3 times a week Return to clinic in 1 year. Assessment & Plan (05/07/2025 10:15 AM EDT): Asthma is well controlled, ACT 20. Needs a new nebulizer. Orders: Nebulizer Colon polyps 04/24/2024 Diverticulitis 04/24/2024 HTN (hypertension) 04/24/2024 Assessment & Plan (04/26/2025 10:08 AM EDT): The patient's antihypertensive regimen is based on their underlying medical issues. At the time of this visit, the blood pressure is well controlled on valsartan 40 mg. The patient is instructed to follow a low sodium diet and to follow up in 6 months. Assessment & Plan (12/08/2024 10:32 AM EDT): Well-controlled on valsartan. Continue same regimen. Assessment & Plan (10/24/2024 11:01 AM EDT): Orders: Comprehensive metabolic panel; Future Hemoglobin A1c; Future Lipid panel with reflex to direct LDL; Future Thyroid stimulating hormone; Future Hyperlipidemia 04/24/2024 Assessment & Plan (04/26/2025 10:08 AM EDT): Given the patients cardiac risk profile, the patient requires an LDL cholesterol of less than 70. I have instructed the patient on the principles of a low cholesterol diet and the importance of regular exercise. We will continue atorvastatin 80 mg daily. Assessment & Plan (10/24/2024 11:01 AM EDT): Hypothyroid 04/24/2024 Assessment & Plan (04/26/2025 10:08 AM EDT): Last TSH normal, and has been stable over the last years. Continue levothyroxine 75 mcg. Will recheck TSH levels before her next visit. RSV infection 07/14/2022 Overview (04/24/2024): Last Assessment [...] in clinic I order imaging. Alzheimer disease ([facility] V24, [facility] V28) 01/2022 Snoring 10/29/2020 Overview (04/24/2024): 10/2020 Home Sleep Study did not reveal sleep apnea or nocturnal hypoxia. Lab test negative for COVID-19 virus 09/29/2020 Personal history of COVID-19 09/26/2020 Gastroesophageal reflux disease without esophagi tis 08/13/2020 Diabetes mellitus ([facility] V24, [facility] V28) 10/2019 Assessment & Plan (12/08/2024 10:32 AM EDT): Well-controlled on a diet. Thoracic aortic aneurysm without rupture (CMS/ C V24) 02/12/2017 Vitamin D deficiency 12/16/2015 Urge incontinence 09/10/2014 Lumbar degenerative disc disease 05/16/2014 Obesity (BMI 30-39.9) 05/16/2014 Hypertensive retinopathy of both eyes 12/25/2013 Overview (04/24/2024): Cataracta noted outsie eye exam 12/26/12. Chest pain at rest 12/04/2013 Osteoarthritis 07/17/2013 Osteopenia 05/16/2013 Medial meniscus tear 01/25/2013 Encounters Date Type Department Care Team Description 04/26/2025 9:30 AM EDT Office Visit Adult Medicine [address] [phone] Jeane Peoples MD Type II or unspecified type diabetes mellitus with neurological manifestations, not stated as uncontrolled(250.60) ([facility] V24, [facility] V28) (Primary Dx); Primary hypertension; Mixed hyperlipidemia; Hypothyroidism, unspecified type; Tongue lesion; Mild intermittent asthma without complication 04/04/2025 8:30 AM EDT Office Visit Pulmonology - [address] [place] [phone] Zulema Zhong NP Asthma due to seasonal allergies (Primary Dx); Mild persistent asthma without complication 02/13/2025 Telephone Adult Medicine [address] [phone] Jeane Peoples MD from Last 3 Months Immunizations Name Administration [...] HISTORICAL TUBAL LIGATION OTHER SURGICAL HISTORY PROCEDURE: MI UNLISTED PROCEDURE ARTHROSCOPY; COMMENT: b/l knees TOTAL KNEE ARTHROPLASTY 06/2020 Left PROCEDURE: MI ARTHRP KNE CONDYLE&PLATU MEDIAL&LAT COMPARTMENTS Medical History Medical History Date Comments HTN (hypertension) DX:HTN (hyper tension) Hypothyroid DX:Hypothyroid Osteoporosis DX:Osteoporosis Hyperlipidemia DX:Hyperlipidemi a Asthma DX:Asthma; COMME NT: last pft in 2011- mild obstructive lung disease DM (diabetes mellitus) ([facility] V24, [facility] V28) DX:DM (diabetes mellitus) (H CC) Diverticulitis DX:Diverticuliti s Medial meniscus tear 01/25/2013 DX:Medial m eniscus tear; COMMENT: bilateral knees on mri Colon polyps DX:Colon polyps Osteopenia 05/16/2013 DX:Osteopenia Osteoarthritis 07/17/2013 DX:Osteoarthriti s Urge incontinence 09/10/2014 DX:Urge incont inence Covid-19 06/17/2020 DX:COVID-19 COVID-19 virus infection 07/10/2020 DX:COVI D-19 virus infection Pulmonary embolism ([facility] V24, [facility] V28) 07/15/2020 DX:Pulmonary embolism (HCC); [...] for your loved ones. For example, child adolescent psychiatrist or elderly care for an older adult? [...] Sign Reading Time Taken Comments Blood Pressure 121/76 04/26/2025 9:06 AM EDT Pulse 71 04/26/2025 9:06 AM EDT Temperature 35.9 C (96.7 F) 04/26/2025 9:06 AM EDT Respiratory Rate 16 04/26/2025 9:06 AM EDT Oxygen Saturation 93% 04/26/2025 9:06 AM EDT Inhaled Oxygen Concentration - - Weight 92.6 kg (204 lb 3.2 oz) 04/26/2025 9:06 A M EDT Height 162.6 cm (5' 4 ) 04/26/2025 9:06 AM EDT Body Mass Index 35.05 04/26/2025 9:06 AM EDT Plan of Treatment Upcoming Encounters Date Type Department Care Team (Late st Contact Info) Description 07/18/2025 11:25 AM EST Office Visit Pulmonology - [place] [address] [facility] [address] [place] [phone] Zulema Zhong, KISHAN [address] [place] [phone] 08/01/2025 9:00 AM EST Office Visit Adult Medicine [facility] [address] [place] [address] Jeane Baxter MD [address] [place] [address] Health Maintenance Due Date Last Done Comments Medicare Annual Wellness Visit 07/25/2022 RSV Immunization Adult Patients (1 - 1-dose 75+ series) 11/12/2023 Depression Screening 08/16/2024 06/20/2024 Osteoporosis Screening (Bone Density Screening) 10/01/2024 10/01/2022, 09/10/2020 Falls Risk Assessment 06/20/2025 06/20/2024 Social Influencers of Health Screening 06/20/2025 06/20/2024 Diabetes: Annual Urine Albumin-Creatinine Ratio (uACR) 09/13/2025 09/13/2024, 02/23/2024, 02/23/2024 Diabetes: Blood Sugar Control Test (HGBA1C) 10/16/2025 04/18/2025, 09/13/2024, 02/23/2024, Additional history exists Diabetes: Annual Retina Eye Exam 10/19/2025 10/19/2024, 09/29/2023, 09/29/2023 Diabetes: Annual Foot Exam 10/24/202510/24, 09/29/2023, 09/29/2023 Diabetes: Annual GFR (Glomerular Filtration Rate) 04/18/2026 04/18/2025, 09/13/2024, 02/23/2024, Additional history exists Hypertension/CHF/CAD Annual BMP Blood Test 04/18/2026 04/18/2025, 09/13/2024, 02/23/2024, Additional history exists Colorectal Cancer Screening: Colonoscopy 06/20/2028 03/16/2018 Postponed from 03/16/2023 (Not clinically appropriate to address at this time) Cholesterol Screening (Lipid Panel) 04/18/2030 04/18/2025, 09/13/2024, 02/23/2024, Additional history exists Hepatitis C Screening Completed 07/17/2013 Pneumococcal Vaccine: [...] Procedure Name Priority Date/Time Associated Diagnosis Comments COMPREHENSIVE METABOLIC PANEL Routine 04/18/2025 7:48 AM EDT Type II or unspecified type diabetes mellitus with neurological manifestations, not stated as uncontrolled(250.60) ([facility] V24, [facility] V28) Primary hypertension HEMOGLOBIN A1C Routine 04/18/2025 7:48 AM EDT Type II or unspecified type diabetes mellitus with neurological manifestations, not stated as uncontrolled(250.60) ([facility] V24, [facility] V28) Primary hypertension LIPID PANEL WITH REFLEX TO DIRECT LDL Routine 04/18/2025 7:48 AM EDT Type II or unspecified type diabetes mellitus with neurological manifestations, not stated as uncontrolled(250.60) ([facility] V24, [facility] V28) Primary hypertension THYROID STIMULATING HORMONE Routine 04/18/2025 7:48 AM EDT Type II or unspecified type diabetes mellitus with neurological manifestations, not stated as uncontrolled(250.60) ([facility] V24, [facility] V28) Primary hypertension EXTERNAL XRAY REPORT Routine 03/29/2025 9:21 AM EDT MG MAMMO DIGITAL SCREENING W DARIEN BILAT Routine 10/25/2024 9:53 AM EDT Encounter for screening mammogram for breast cancer EXTERNAL DIABETIC RETINA EYE EXAM Routine 10/19/2024 9:25 AM EST MICROALBUMIN CREATININE URINE RATIO Routine 09/13/2024 8:43 AM EST Type 2 diabetes mellitus without complication, without long-term current use of insulin ([facility] V24, [facility] V28) DIABETES FOOT EXAM Routine 09/29/2023 DXA BONE DENSITY STUDY 1+ SITS AXIAL SKEL Routine 10/01/2022 1:43 PM EST Hypothyroidism, unspecified HEPATITIS C SCREENING Routine 07/17/2013 from Last 3 Months or Most Recently Relevant to Health Maintenance Results * (ABNORMAL) Lipid panel with reflex to direct LDL (04/18/2025 7:48 AM EDT) Cholesterol 149 0 - 200 mg/dL LAB CHEMISTRY METHOD 04/18/2025 11:42 AM EDT [facility] Triglycerides 152(H) 0 - 150 mg/dL LAB CHEMISTRY METHOD 04/18/2025 11:42 AM EDT [facility] HDL 51 >=40 mg/dL LAB [facility]STR[facility] LDL Calculated 68 0 - 100 mg/dL LAB CHEMISTRY METHOD 04/18/2025 11:42 AM EDT [facility] Comment:Estimated LDL Calcul ated using equation: Total cholesterol - HDL cholesterol - (Triglycerides/5) VLDL Cholesterol Boni 30.4 mg/dL LAB CHEMISTRY METHOD 04/18/2025 11:42 AM EDT [facility] Non HDL Chol. (LDL+VLDL) 98 <145 mg/dL LAB CHEMISTRY METHOD 04/18/2025 11:42 AM T [facility] Chol/HDL Ratio 2.9 0.0 - 4.4 LAB CHEMISTRY METHOD 04/18/2025 11:42 AM T [facility] Blood Venous blood specimen / Unknown Venipuncture / Unknown 04/18/2025 7:48 AM EDT 04/18/2025 10:20 AM EDT us Jeane Baxter MD LAB BLOOD ORDERABL ES Final Result [facility] [address] [place] [address], * Thyroid stimulating hormone (04/18/2025 7:48 AM EDT) TSH 2.08 0.40 - 4.00 mcIU/mL LAB CHEMISTRY METHOD 04/18/2025 12:46 PM EDT [facility] Blood Venous blood specimen / Unknown Venipuncture / Unknown 04/18/2025 7:48 AM EDT 04/18/2025 10:20 AM EDT Jeane Baxter MD LAB BLOOD ORDERABL ES Final Result Performing Organization Address [facility]/ZIP Co de Phone Number [facility] [address] [place] [address], [place] [phone] * (ABNORMAL) Hemoglobin A1c (04/18/2025 7:48 AM EDT) Hemoglobin A1C 6.5(H) <6.5 % LAB CHEMISTRY METHOD 04/18/2025 11:41 AM EDT [facility] Mean Bld Glu Estim. 140 mg/dL LAB CHEMISTRY METHOD 04/18/2025 11:41 AM EDT [facility] Blood Venous blood specimen / Unknown Venipuncture / Unknown 04/18/2025 7:48 AM EDT 04/18/2025 10:22 AM EDT Jeane Baxter MD LAB BLOOD ORDERABL ES Final Result Performing Organization Address [facility]/ZIP Co de Phone Number [facility] [address] [place] [address], [place] [phone] * (ABNORMAL) Comprehensive metabolic panel (04/18/2025 7:48 AM EDT) Sodium 139 133 - 145 mmol/L LAB CHEMISTRY METHOD 04/18/2025 11:42 AM EDT [facility] Potassium 4.2 3.5 - 5.5 mmol/L LAB CHEMISTRY METHOD 04/18/2025 11:42 AM EDT [facility] Chloride 107 96 - 110 mmol/L LAB CHEMISTRY METHOD 04/18/2025 11:42 AM [facility] CO2 28 21 - 32 mmol/L LAB CHEMISTRY METHOD 04/18/2025 11:42 AM [facility] Anion Gap 4 3 - 11 LAB CHEMISTRY METHOD 04/18/2025 11:42 AM [facility] Glucose 109(H) 70 - 100 mg/dL LAB CHEMISTRY METHOD 04/18/2025 11:42 AM [facility] BUN 15 5 - 25 mg/dL LAB CHEMISTRY METHOD 04/18/2025 11:42 AM [facility] Creatinine 0.69 0.50 - 1.10 mg/dL LAB CHEMISTRY METHOD 04/18/2025 11:42 AM [facility] eGFR 90 >=60 mL/min/1. 73m2 LAB CHEMISTRY METHOD 04/18/2025 11:42 AM [facility] Comment:Calculation based on the Chronic Kidney Disease Epidemiology Collaboration (CKD-EPI) equation refit without adjustment for race. BUN/Creatinine Ratio 21.7 LAB CHEMISTRY METHOD 04/18/2025 11:42 AM [facility] Calcium 8.9 8.5 - 10.5 mg/dL LAB CHEMISTRY METHOD 04/18/2025 11:42 AM [facility] AST (SGOT) 23 10 - 42 unit/L LAB CHEMISTRY METHOD 04/18/2025 11:42 AM [facility] ALT (SGPT) 21 10 - 60 unit/L LAB CHEMISTRY METHOD 04/18/2025 11:42 AM [facility] Alkaline Phosphatase 81 42 - 121 unit/L LAB CHEMISTRY METHOD 04/18/2025 11:42 AM [facility] Total Protein 6.8 6.0 - 8.0 g/dL LAB CHEMISTRY METHOD 04/18/2025 11:42 AM [facility] Albumin 3.9 3.2 - 5.0 g/dL LAB CHEMISTRY METHOD 04/18/2025 11:42 AM EDT [facility] Total Bilirubin 0.4 0.0 - 1.4 mg/dL LAB CHEMISTRY METHOD 04/18/2025 11:42 AM EDT [facility] Blood Venous blood specimen / Unknown Venipuncture / Unknown 04/18/2025 7:48 AM EDT 04/18/2025 10:20 AM EDT Jeane Baxter MD LAB BLOOD ORDERABL ES Final Result [facility] [address] [place] [address], [place] [phone] * External Xray Report (03/29/2025 9:21 AM EDT) Anatomical Region Laterality Modality Radiographic Carole ging Historical Provider IMG XR PROCEDURES Final R esult * MG Mammo Digital Screening w Darien bilat (10/25/2024 9:53 AM EDT) Anatomical Region Laterality Modality Breast Bilateral Mammography 10/25/2024 11:3 1 AM EDT Impressions 10/25/2024 11:36 AM EDT Benign. BI-RADS CATEGORY: 1 - NEGATIVE RECOMMENDATION: Screening bilateral mammogram is recommended in 1 year. Mammo Location: [facility], [address] [place] [address], [id number], . -------- FINAL REPORT -------- Dictated By: Gema Alarcon Dictated Date: 10/25/2024 11:31 ET Assigned Physician: Gema Alarcon Reviewed and Electronically Signed By: Gema Alarcon Signed Date: 10/25/2024 11:36 ET Workstation ID: [id number] Transcribed By: Self Edit Transcribed Date: 10/25/2024 [...] is recommended in 1 year. Mammo Location: [facility], [address] [place] [address], [id number], . -------- FINAL REPORT -------- Dictated By: Gema Alarcon Dictated Date: 10/25/2024 11:31 ET Assigned Physician: Gema Alarcon Reviewed and Electronically Signed By: Gema Alarcon Signed Date: 10/25/2024 11:36 ET Workstation ID: [id number] Transcribed By: Self Edit Transcribed Date: 10/25/2024 11:31 ET Jeane PALM BI PROCEDURES Final Result * External Diabetic Retina Eye Exam Report (10/19/2024 9:25 AM EST) Anatomical Region Laterality Modality Ultrasound us Historical Provider MD IMG US PROCEDURES Final R esult * Microalbumin creatinine urine ratio (09/13/2024 8:43 AM EST) Pathologist [facility] Creatinine, Urine 181.0 mg/dL LAB CHEMISTRY METHOD 09/13/2024 10:06 AM EST [facility] Microalb, Ur 17.3 0.0 - 29.0 mg/L LAB CHEMISTRY METHOD 09/13/2024 10:06 AM EST [facility] Microalb/Creat Ratio 10 <30 mg/g creat LAB CHEMISTRY METHOD 09/13/2024 10:06 AM EST [facility] Urine Urine specimen from urethra / Unknown Non-blood Collection / Unknown 09/13/2024 8:43 AM EST 09/13/2024 9:12 AM EST Jeane Baxter MD LAB URINE ORDERABL ES Final Result [facility] [address] [place] [address], [place] [phone] * Diabetes Foot Exam (09/29/2023) [facility] Diabetes: Annual Foot Exam Abstracted Historical Provider HEALTH MAINTENANCE Final Result * [...] Based on the World Health Organization criteria, Miladys Melvin should be classified as having normal bone density. The [facility] Department of Internal Medicine recommends using National [...] Based on the World Health Organization criteria, Miladys Melvin shouldbe classified as having normal bone density. The [facility] Department of Internal Medicine recommendsusing National Osteoporosis [...] fracture risk by FRAX. 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
--- OUTSIDE RECORDS SUMMARY | 2025-05-07 11:05 | XMS_ITS ---
Author Name [facility] Organization Unknown Care Team Organization Name Specialty Phone Email Start Date End Da ivis [facility] 04/04/2025
== END 2025-05-07 09:42 | disposition home or self-care (01) ==
LOC: HO.HSM 09:24
PROVIDERS: PCP Internal Medicine; Visit Provider Psychiatry & Neurology Neurology
DX: G30.9 Alzheimer's disease, unspecified (principal); F02.80 Dementia in other diseases classified elsewhere, unspecified severity, without behavioral disturbance, psychotic disturbance, mood disturbance, and anxiety
CPT/HCPCS: 99214

== ENCOUNTER → 2025-05-07 09:23 | Outpatient (BNVA) | payer MEDICARE, MEDICAID, SELFPAY | PROVIDERS: PCP Internal Medicine; Visit Provider Psychiatry & Neurology Neurology | DX: G30.9 Alzheimer's disease, unspecified (principal); F02.80 Dementia in other diseases classified elsewhere, unspecified severity, without behavioral disturbance, psychotic disturbance, mood disturbance, and anxiety; Z79.899 Other long term (current) drug therapy | CPT/HCPCS: 99212 ==